=== PATIENT | male | born 1940 | race Caucasian/White ===

== ENCOUNTER → 2019-01-20 | Day surgery (SDC) | payer MEDICARE ==
[2019-01-16 15:06] LABS: BASOPHILS % 0.4 % (0.0-1.0); EOSINOPHILS # (AUTO) 0.2 (0.0-0.4); EOSINOPHILS % 3.4 % (0.0-6.0); HEMATOCRIT 31.5 % (38.2-49.6); HEMOGLOBIN 10.4 g/dL (14.0-18.0); LYMPHOCYTES # (AUTO) 1.4 (1.0-3.2); LYMPHOCYTES % 29.1 % (18.0-39.1); MEAN CORPUSCULAR HEMOGLOBIN 29.3 pg (28-32); MEAN CORPUSCULAR VOLUME 88.7 fL (81-99); MONOCYTES # (AUTO) 0.4 (0.2-0.8); MONOCYTES % 7.6 % (4.4-11.3); NEUTROPHILS # (AUTO) 2.8 (2.1-6.9); NEUTROPHILS % 58.9 % (38.7-80.0); PLATELET COUNT 150 x10e3/uL (140-360); RED BLOOD COUNT 3.55 x10e6/uL (4.3-5.7)
[2019-01-16 15:34] LABS: ANION GAP 12.9 mmol/L (8-16); CALCIUM 9.6 mg/dL (8.4-10.2); CREATININE, SERUM 1.8 mg/dL (0.72-1.25); POTASSIUM 3.9 mmol/L (3.5-5.1)
--- NOTE | 2019-01-16 15:43 | Diagnostic Imaging Report ---
Chest, 2 views, 01/16/2019. History: Preop, right inguinal hernia. Comparison: None available. Findings: The cardiomediastinal silhouette and pulmonary vasculature are within normal limits. The lungs are clear without evidence of consolidation or pleural effusion. Mild degenerative changes are noted in the thoracic spine. There are no acute osseous or soft tissue abnormalities. Impression: No acute cardiopulmonary abnormality. Signed by: Evaristo Amaya on 01/16/2019 3:39 PM
[~2019-01-20] MED LIST: ASPIR 8181 MG PO; BACITRACIN 50,000 UNIT VIAL ONE; BUPIVACAINE HCL 0.5% INJ 30 ML VIAL INJ ONE; CEFAZOLIN SOD 1 GM/NS 50ML 100 ML IV ONE; CLONAZEPAM0.5 MG PO; DEXAMETHASONE SOD PHOS INJ 4 MG/ML VIAL ONE; DONEPEZIL HCL5 MG PO; FENOFIBRATE134 MG PO; FERROUS SULFAT324 MG PO; FISH OIL 1,2001 EACH PO; GLIMEPIRIDE2 MG PO; LIDOCAINE HCL 2% LOCAL INJ 5 ML SDV VIAL INJ ONE; LISINOPRIL2.5 MG PO; MELATONIN3 MG PO; METFORMIN HCL500 M2 PO; ONDANSETRON HCL INJ 2MG/ML 2ML 2 MG/ML VIAL ONE; PIOGLITAZONE HC45 MG PO; PROPOFOL IV EMULSION 10 MG/ML 20 ML VIAL ONE; RANITIDINE HCL150 MG PO; SERTRALINE HCL100 MG PO; SEVOFLURANE INHAL SOLN 250 ML PEN BTL ONE; VITAMIN B-121000 MCG PO
--- OUTSIDE RECORDS SUMMARY | 2019-01-20 10:35 | XMS REPORT ---
Author Organization Unknown Address [address] [place] [address] Phone [phone] Care Team Providers Care Buffet Waiter/Waitress Name Role Phone DR. СЕРГЕЙ POWERS 3 [phone] Allergies Code Code System Name Reaction Severity Status Onset 2670 RxNorm Codeine Active 7052 RxNorm Morphine Active Medications Name Status Start Date Stop Date acetaminophen 300 mg-codeine 30 mg tablet Completed 10/15/2016 Adult Low Dose Aspirin 81 mg tablet,delayed release Take 1 tablet every day by oral route for 90 days. Active Not available ciprofloxacin 500 mg tablet Completed 10/15/2016 fenofibrate micronized 134 mg capsule Active Not available glimepiride 4 mg tablet Active Not available levofloxacin 500 mg tablet Completed 03/05/2017 lisinopril 5 mg tablet Active Not available metformin 500 mg tablet Completed 03/05/2017 metformin ER 500 mg 24 hr tablet,extended release Take 2 tablets every day by oral route for 30 days. Active Not available metformin ER 500 mg tablet,extended release 24 hr Completed 08/05/2017 ReliaMed Mini Lancing Device Take 1 each every day by miscell. route for 90 days. Active Not available tramadol 50 mg tablet Completed 08/05/2017 triamcinolone acetonide 0.1 % topical cream APPLY A THIN LAYER TO THE AFFECTED AREA(S) BY TOPICAL ROUTE 2 TIMES PER DAY Active Not available True Metrix Glucose Test Strip Active Not available True Metrix Level 1 solution Completed 03/05/2017 TRUEplus Lancets 28 gauge Take 1 each every day by miscell. route for 90 days. 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 Active 03/05/2017 Hypertriglyceridemia Active 03/05/2017 Chronic Kidney Disease Stage 3 Active 03/05/2017 Raised Prostate Specific Antigen Active 03/05/2017 Diabetic Retinopathy Associated with Type 2 Diabetes Mellitus Active 03/05/2017 Bilateral Age-related Nuclear Cataracts Active 03/05/2017 Procedures Date Name Performed by 04/22/2016 Hernia Repair Information not available 04/22/2008 Orthopedic Surgery Information not available 08/21/2016 XR, Knee, 3 View [facility] [address] [place] [address] (Work Place) 01/09/2017 XR, Chest, 2 View [facility] [address] [place] [address] (Work Place) Lab Results Date Name Specimen Result Interpretation Description Value Range Status Address 08/21/2016 TSH, Serum or Plasma Normal Tsh 2.35 mIU/L 0.40-4.50 mIU/L Final [facility]: [address] [place] [address] 08/21/2016 HbA1C (Hemoglobin a1C), Blood High Hemoglobin a1C 7.8 % of total HGB <5.7 % of total HGB Final [facility]: [address] [place] [address] EAG (mg/dL) 177 (calc) Final [facility]: [address] [place] [address] EAG (mmol/L) 9.8 (calc) Final [facility]: [address] [place] [address] 08/21/2016 Lipid Panel, Serum Normal Cholesterol, Total 132 mg/dL 125- 200 mg/dL Final [facility]: [address] [place] [address] Low HDL Cholesterol 27 mg/dL > or=40 mg/dL Final [facility]: [address] [place] [address] High Triglycerides 185 mg/dL <150 mg/dL Final [facility]: [address] [place] [address] Normal LDL-cholesterol 68 mg/dL (calc) <130 mg/dL (calc) Final [facility]: [address] [place] [address] Normal Chol/hdlc Ratio 4.9 (calc) < or=5.0 (calc) Final [facility]: [address] [place] [address] Normal Non HDL Cholesterol 105 mg/dL (calc) Final [facility]: [address] [place] [address] 08/21/2016 CBC W/ Auto Diff Normal White Blood Cell Count 4.7 thousand/uL 3.8-10.8 thousand/uL Final [facility]: [address] Normal Red Blood Cell Count 4.62 million/uL 4.20-5.80 million/uL Final [facility]: [address] Low Hemoglobin 12.9 g/dL 13.2-17.1 g/dL Final [facility]: [address] Normal Hematocrit 39.8 % 38.5-50.0 % Final [facility]: [address] Normal Mcv 86.0 fL 80.0-100.0 fL Final [facility]: [address] Normal Mch 28.0 pg 27.0-33.0 pg Final [facility]: [address] Normal Mchc 32.5 g/dL 32.0-36.0 g/dL Final [facility]: [address] Normal Rdw 13.3 % 11.0-15.0 % Final [facility]: [address] Normal Platelet Count 179 thousand/uL 140-400 thousand/uL Final [facility]: [address] Normal Mpv 7.9 fL 7.5-12.5 fL Final [facility]: [address] Normal Absolute Neutrophils 2623 cells/uL 5109-4713 cells/uL Final [facility]: [address] Absolute Band Neutrophils Preliminary [facility]: [address] Absolute Metamyelocytes Preliminary [facility]: [address] Absolute Myelocytes Preliminary [facility]: [address] [place] Absolute Promyelocytes Preliminary [facility]: [address] Normal Absolute Lymphocytes 1537 cells/uL 850-3900 cells/uL Final [facility]: [address] Normal Absolute Monocytes 324 cells/uL 200-950 cells/uL Final [facility]: [address] [place] Normal Absolute Eosinophils 197 cells/uL 15-500 cells/uL Final [facility]: [address] Normal Absolute Basophils 19 cells/uL 0-200 cells/uL Final [facility]: [address] Absolute Blasts Preliminary [facility]: [address] Absolute Nucleated RBC Preliminary [facility]: [address] Normal Neutrophils 55.8 % Final [facility]: [address], [address] Band Neutrophils Preliminary [facility]: [address] Metamyelocytes Preliminary [facility]: [address] Myelocytes Preliminary [facility]: [address] Promyelocytes Preliminary [facility]: [address], [address] Normal Lymphocytes 32.7 % Final [facility]: [address] Reactive Lymphocytes Preliminary [facility]: [address] Normal Monocytes 6.9 % Final [facility]: [address] Normal Eosinophils 4.2 % Final [facility]: [address] Normal Basophils 0.4 % Final [facility]: [address] Blasts Preliminary [facility]: [address] [place] Nucleated RBC Preliminary [facility]: [address] Comment(s) Preliminary [facility]: [address] 08/21/2016 CMP, Serum or Plasma High Glucose 122 mg/dL 65-99 mg/dL Final [facility]: [address] [place] Normal Urea Nitrogen (BUN) 18 mg/dL 7-25 mg/dL Final [facility]: [address] [place] High Creatinine 1.35 mg/dL 0.70-1.18 mg/dL Final [facility]: [address] [place] Low eGFR Non-afr. Taiwanese 52 mL/min/1.73m2 > or=60 mL/min/1.73m2 Final [facility]: [address] [place] Normal eGFR 60 mL/min/1.73m2 > or=60 mL/min/1.73m2 Final [facility]: [address] Normal BUN/creatinine Ratio 13 (calc) 6-22 (calc) Final [facility]: [address] [facility] Normal Sodium 140 mmol/L 135-146 mmol/L Final [facility]: [address] Normal Potassium 5.1 mmol/L 3.5-5.3 mmol/L Final [facility]: [address] Normal Chloride 107 mmol/L 98-110 mmol/L Final [facility]: [address] Normal Carbon Dioxide 27 mmol/L 20-31 mmol/L Final [facility]: [address] Normal Calcium 10.2 mg/dL 8.6-10.3 mg/dL Final [facility]: [address] Normal Protein, Total 7.3 g/dL 6.1-8.1 g/dL Final [facility]: [address] Normal Albumin 4.4 g/dL 3.6-5.1 g/dL Final [facility]: [address] Normal Globulin 2.9 g/dL (calc) 1.9-3.7 g/dL (calc) Final [facility]: [address] Normal Albumin/globulin Ratio 1.5 (calc) 1.0-2.5 (calc) Final [facility]: [address] Normal Bilirubin, Total 0.5 mg/dL 0.2-1.2 mg/dL Final [facility]: [address] [place] [address] Normal Alkaline Phosphatase 43 U/L 40-115 U/L Final [facility]: [address] Normal Ast 20 U/L 10-35 U/L Final [facility]: [address] Normal Alt 21 U/L 9-46 U/L Final [facility]: [address] [facility] 08/21/2016 PSA, Serum or Plasma High PSA, Total 9.6 NG/mL < or=4.0 NG/mL Final [facility]: [address] Glucose, Fingerstick, Blood Blood Glucose: mg/dl 151 [facility] [place]: [address] Glucose, Fingerstick, Blood Blood Glucose: mg/dl 174 [facility] - [place]: [address], [address] Urinalysis, Dipstick Color Color yellow [facility] [place]: [address] Color Appearance clear [facility] [place]: [address] Color Glucose negative [facility] [place]: [address] Color Bilirubin negative [facility] [place]: [address], [address] Color Ketones negative [facility] [place]: [address], [place] Color Specific [place] 1.025 [facility] [place]: [address] Color Blood negative [facility] [place]: [address] Color PH 7.0 [facility] [place]: [address] Color Protein 300 [facility] [place]: [address] Color Urobilinogen 1 [facility] - [place]: [address], [address] Color Nitrites negative [facility] [place]: [address] Color Leukocytes negative [facility] [place]: [address] Past Encounters 08/05/2017 Contact Dermatitis; Type II Diabetes Mellitus Uncontrolled; Chronic Kidney Disease Stage 3; Raised Prostate Specific Antigen; Anemia Anderson Thompson MD: [address] [place] [address], Ph. 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 Social History Smoking Status Never Smoker Vaccine List Vaccine Type influenza, high dose seasonal 01/09/20170.5 mL Plan of Care Reminders Provider Appointments None recorded. Lab None recorded. Referral None recorded. Procedures None recorded. Surgeries None recorded. Imaging None recorded. Vitals 08/05/2017 02:15PM Est Patient Height Weight BMI Blood Pressure 6 ft 206 lbs 27.9 kg/m2 126/72 mm[Hg] 03/05/2017 08:45AM Est CPX Height Weight BMI Blood Pressure 6 ft 205 lbs 27.8 kg/m2 140/60 mm[Hg]
--- OUTSIDE RECORDS SUMMARY | 2019-01-20 10:35 | XMS REPORT | Encounter Summary ---
Author Organization Unknown Address [address] [place] [address] Phone [phone] Care Team Providers Care Elementary Esl Teacher Name Role Phone Dr. Anderson Thompson 3 [phone] Shanel Denny MD 107 [phone] Ally Russo MD 118 [phone] Gabi Nash MD 129 [phone] Reason for Visit Hypertriglyceridemia; Type II diabetes mellitus uncontrolled; cough Instructions 1. Type 2 diabetes mellitus well controlled metformin ER 500 mg 24 hr tablet,extended release glimepiride 4 mg tablet diabetic ophthalmology referral - PLEASE FAX NOTES TO [phone]. 2. Hypertriglyceridemia fenofibrate micronized 134 mg capsule 3. Screening for malignant neoplasm of colon 4. Immunization refused 5. Body mass index 25-29 - overweight learning about healthy weight 6. Iron deficiency anemia 7. Chronic kidney disease stage 3 nephrology referral - PLEASE FAX NOTES TO [phone]. 8. Memory impairment neurology referral - PLEASE FAX NOTES TO [phone]. Discussion Note: None recorded. Plan of Care Reminders Provider Appointments Est Patient 09/12/2018 10:15AM Day Loyd MD Lab None recorded. Referral Neurology Referral 06/17/2018 Gabi Nash MD Nephrology Referral 06/17/2018 Ally Russo MD Diabetic Ophthalmology Referral 06/17/2018 Amanda Alexander MD Procedures None recorded. Surgeries None recorded. Imaging None recorded. Medications Name Start Date Adult Low Dose Aspirin 81 mg tablet,delayed release Take 1 tablet every day by oral route for 90 days. B12 QD OTC clonazepam 0.5 mg tablet Take 1 tablet twice a day by oral route as needed. fenofibrate micronized 134 mg capsule Take 1 capsule every day by oral route for 90 days. ferrous sulfate 324 mg (65 mg iron) tablet,delayed release Take 1 tablet every day by oral route. glimepiride 4 mg tablet Take 1 tablet twice a day by oral route for 90 days. lisinopril 5 mg tablet Take 1 tablet every day by oral route for 90 days. melatonin 10 mg capsule Take 1 capsule every day by oral route at bedtime. metformin ER 500 mg 24 hr tablet,extended release Take 2 tablets twice a day by oral route for 90 days. sertraline 100 mg tablet Take 1 tablet every day by oral route for 30 days. Medications Administered None recorded. Vitals Height Weight BMI Blood Pressure 6 ft 193.6 lbs 26.3 kg/m2 124/78 mm[Hg] Lab Results None recorded. Allergies Code Code System Name Reaction Severity Status Onset 2669 RxNorm Codeine Active 70 RxNorm Morphine Active Problems Name Status Onset Date Source Type [...] 03/05/2017 Bilateral Age-related Nuclear Cataracts Active 03/05/2017 Memory Impairment Active 06/17/2018 Procedures Date Name Performed by 04/22/2016 Hernia Repair Information not available 04/22/2008 Orthopedic Surgery Information not available 04/22/1987 Removal of Gallbladder Information not available 04/22/1983 Other Information not available Vaccine List Vaccine Type influenza, high dose seasonal 01/09/20170.5 mL 03/11/20180.5 mL pneumococcal conjugate PCV 13 04/08/20180.5 mL Social History Smoking Status Never Smoker Past Encounters 06/17/2018 Type 2 Diabetes Mellitus Well Controlled; Hypertriglyceridemia; Screening for Malignant Neoplasm of Colon; Immunization Refused; Body Mass Index 25-29 - Overweight; Iron Deficiency Anemia; Chronic Kidney Disease Stage 3; Memory Impairment Day Lyod MD: [address] [place] [address], Ph. History of Present Illness Note:77yo male presents for follow-up visit. Since last visit, pt has not yet seen any specialists. Was scheduled to see neph (Dr Russo) last month, but appt was postponed to June 29, 2018, Dr Masters not available.<div>Next visit with neurology, Dr aNsh in July 2018.</div><div>Did not schedule with psychiatry or psychology - not covered by insurance</div><div>Did not schedule with Dr Carlos, hematology.</div><div>Did not schedule with Dr Denny GI for colonoscopy. Has [facility] at home to [facility] from [facility].</div><div>Did not schedule with Dr Nichole, urology.</div><div>tea tree farm worker contacted pt & regarding community resources.</div><div><div>Pt's requests update to referrals as they have .</div><div><div><div>
</div><div>PMHx:</div><div> Hyperlipidemia - on fenfibrate for past 6yrs.</div><div>Anemia - has been seen by hematology, Dr Carlos. On oral iron supplement. Next visit in 04/2018.</div><div> Diabetes - past 10-15yrs with Dr. Han before Dr Marin. On metformin ER 500mg two tablets bid & glimepiride 4mg bid</div><div>Hypertension - on lisinopril 5mg qd.</div><div>Insomnia - on OTC melatonin</div><div>cataracts - no diabetic retinopathy per . Followed by Dr Herrera, ophtho. Last eye exam about Feb 10, 2018.</div>
Previously:
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 /macula edema f/u 1yr<div>walks ++as airline security representative</div></div></div></div> Review of Systems:ROS as noted in the HPI Review of Systems Comprehensive General Adult ROS Reported By: Patient Constitutional: Constitutional: no fever Eyes: Eyes: no vision change Cardiovascular: Cardiovascular: no chest pain Respiratory: Respiratory: no wheezing, no shortness of breath, cough Gastrointestinal: Gastrointestinal: no abdominal pain Neurologic: Neurologic: no loss of consciousness, no headaches Psychiatric: Psych: feeling safe in a relationship, no alcohol abuse, no hallucinations, no suicidal thoughts, depression, sleep disturbances, restless sleep, anxiety; decreased memory Physical Exam Upper Respiratory Infection Exam Comprehensive, Cardiology Exam Reported By: Patient Constitutional: General Appearance in no acute distress, well-developed, appears stated age Skin: Inspection and Palpation: warm and dry. Nails: no clubbing Eyes: Pupils conjunctiva non-injected, PERRLA. Lids and Conjunctivae: anicteric, no discharge, no pallor, no arcus senilis, no xanthelasma Lymph Nodes: Cervical non tender, not enlarged Neck: Neck trachea midline, supple, no masses, FROM. Carotid Arteries: bilateral normal upstroke, no bruits, no thrills. Thyroid: not enlarged, non tender, no nodules Lungs: Respiratory effort unlabored. Auscultation no wheezing, no rales / crackles, no rhonchi, clear. Chest Exam: normal curvature, no thoracic deformity, no chest wall tenderness. Percussion: resonant Cardiovascular System: Auscultation no rubs, no gallops. Observation/Palpation of peripheral vascular system no edema. Precordial Exam: non displaced focal PMI, no heaves, no precordial thrills. Rate And Rhythm: regular. Heart Sounds: normal S1, physiologically split S2, no click. Systolic Murmur: not heard. Diastolic Murmur: not heard. Extremities: no cyanosis, no peripheral signs of emboli Psychiatric: Mental Status: alert, normal affect. Orientation: oriented to time, place, and person. Insight: good judgment
--- OUTSIDE RECORDS SUMMARY | 2019-01-20 10:35 | XMS REPORT ---
Author Author [facility] Address Unknown Phone Unavailable Care Team Providers Care Bilingual Customer Service Name Role Phone TRIXIE MATA Unavailable Unavailable Payers Payer Name Policy Type Policy Number Effective Date Expiration Date Problems This patient has no known problems. Allergies, Adverse Reactions, Alerts This patient has no known allergies or adverse reactions. Medications This patient has no known medications. Results Test Description Test Time Test Comments Text Results Atomic Results Result Comments CHEST 2 VIEWS 2019-01-16 15:39:00 [facility] [address] [place] [address] Patient Name: UMA GIL MR #: [id number] : 1940 Age/Sex: 78/M Req #: [id number] Adm Physician: Ordered by: LORA SOLER MD Report #: [id number] Location: OR Room/Bed: Procedure: [id number] DX/CHEST 2 VIEWS Exam Date: 01/16/19 Exam Time: 1450 REPORT STATUS: Signed Chest, 2 views, 01/16/2019. History: Preop, right inguinal hernia. Comparison: None available. Findings: The cardiomediastinal silhouette and pulmonary vasculature are within normal limits. The lungs are clear without evidence of consolidation or pleural effusion. Mild degenerative changes are noted in the thoracic spine. There are no acute osseous or soft tissue abnormalities. Impression: No acute cardiopulmonary abnormality. Signed by: Alondra Amaya on 01/16/2019 3:39 PM Dictated By: ALONDRA AMAYA MD 153 Transcribed By: HENRIK on 01/16/191538 COPY TO: LORA SOLER MD CHEST 2 VIEWS [place] [address] Patient Name: UMA GIL MR #: [id number] : 1940 Age/Sex: 76/M Req #: [id number] Adm Physician: Ordered by: TRIXIE MATA MD Report #: [id number] Location: OR Room/Bed: Procedure: [id number] DX/CHEST 2 VIEWS Exam Date: 04/01/17 Exam Time: 1315 REPORT STATUS: Signed PROCEDURE: CHEST 2 VIEWS TECHNIQUE: PA and lateral chest INDICATION: Preoperative evaluation for hernia surgery. COMPARISON: None. FINDINGS: The lungs are clear and symmetrically inflated. No pleural effusions. Normal heart size and mediastinal contour. Intact skeleton. CONCLUSION: Normal chest. Dictated by: Uma Hart M.D. on 04/01/2017 at 13:56 Electronically approved by: Uma Hart M.D. on 04/01/2017 at 13:56 Dictated By: UMA HART MD [id number] Transcribed By: CLARE on 04/01/17 135 COPY TO: TRIXIE MATA MD
--- OUTSIDE RECORDS SUMMARY | 2019-01-20 10:35 | XMS REPORT | Encounter Summary ---
Author Organization Unknown Address [address] [place] [address] Phone [phone] Care Team Providers Care Farm Labor Contractor Name Role Phone Dr. Anderson Thompson 3 [phone] Shanel Denny MD 107 [phone] Ally Russo MD 118 [phone] Gabi Nash MD 129 [phone] Reason for Visit chronic conditions Instructions 1. Injury of head 2. Laceration of skin 3. Disorientated 4. Type 2 diabetes mellitus 5. Depression screening positive learning about depression learning about mood disorders 6. Unsteady gait 7. Body mass index 25-29 - overweight learning about healthy weight Discussion Note: None recorded. Plan of Care Reminders Provider Appointments Est Patient 07/29/2018 10:30AM Day Loyd MD Est Patient 09/12/2018 10:15AM Day Loyd MD Lab None recorded. Referral None recorded. Procedures [...] Height Weight BMI Blood Pressure 6 ft 194.6 lbs 26.4 kg/m2 110/60 mm[Hg] Lab Results Date Name Specimen Result Interpretation Description Value Range Status Address 07/20/2018 Lab No observation recorded. Allergies Code Code System Name Reaction [...] History Smoking Status Never Smoker Past Encounters 07/22/2018 Injury of Head; Laceration of Skin; Disorientated; Type 2 Diabetes Mellitus; Depression Screening Positive; Unsteady Gait; Body Mass Index 25-29 - Overweight Peter Laboy MD: [address] [place] [address], Ph. History of Present Illness Note:Coming for f/u. Pt went to the ER on 07/20/18 via ambulance. He fell down from the bed and hurt his R eye with the nightstand. He required 5 stitches in the R eyebrow. Pt lost his consciousness for [address] of brain was wnl. CXR and pelvic x-ray were wnl. Glimepiride was d/c at the hospital. Glucose reading at home 160 fasting (since glimepiride was d/c). < div>Pt has a hx of frequent episodes of AMS in the past f/u by neurology. </div> <div>Pt is feeling well today. Denies headaches, blurry vision, dizziness, chest pain, palpitations or SOB.</div> Review of Systems:ROS as noted in the HPI Review of Systems None recorded. Physical Exam General Adult Exam (male) Reported By: Patient Constitutional: General Appearance: healthy-appearing. Level of Distress: NAD Psychiatric: Insight: poor insight. Mental Status: active and alert, normal mood, normal affect. Orientation: to place, to person, not oriented to time. Memory: recent memory abnormal Eyes: Lids and Conjunctivae: non-injected, no discharge; Hematoma around the R eye. 5 sutures in the R eyebrow. Pupils: PERRLA. EOM: EOMI. Sclerae: non-icteric ENMT: Ears: TMs clear. Nose: no sinus tenderness. Lips, Teeth, and Gums: no mouth or lip ulcers. Oropharynx: moist mucous membranes Neck: Neck: supple, trachea midline Lungs: Auscultation: breath sounds normal Cardiovascular: Heart Auscultation: RRR, normal S1, normal S2, no murmurs. Neck vessels: no carotid bruits Musculoskeletal:: Motor Strength and Tone: normal, normal tone Neurologic: Gait and Station: ; unsteady gait. Cranial Nerves: grossly intact. Reflexes: DTRs 2+ bilaterally throughout. Coordination and Cerebellum: no tremor
--- OUTSIDE RECORDS SUMMARY | 2019-01-20 10:35 | XMS REPORT | Encounter Summary ---
Author Organization Unknown Address [address] [place] [address] Phone [phone] Care Team Providers Care Propagator Name Role Phone Dr. Anderson Thompson 3 [phone] Shanel Denny MD 107 [phone] Ally Russo MD 118 [phone] Gabi Nash MD 129 [phone] Reason for Visit Type II diabetes mellitus uncontrolled; other - see typed reason Instructions 1. Type II diabetes mellitus uncontrolled type 2 diabetes: care instructions 2. Body mass index 25-29 - overweight learning about healthy weight 3. Removal of suture Discussion Note: None recorded. Plan of Care Patient Instructions continue same dose metformin,monitor fbs and keep log,rtc as scheduled Reminders Provider Appointments Est Patient 09/12/2018 10:15AM [...] Height Weight BMI Blood Pressure 6 ft 192.8 lbs 26.1 kg/m2 120/60 mm[Hg] Lab Results Date Name Specimen Result Interpretation Description Value Range Status Address 07/20/2018 Lab No observation recorded. Allergies Code Code System Name Reaction Severity Status Onset 2670 RxNorm Codeine Active 7052 RxNorm Morphine Active Problems Name Status Onset [...] History Smoking Status Never Smoker Past Encounters 07/30/2018 Type II Diabetes Mellitus Uncontrolled; Body Mass Index 25-29 - Overweight; Removal of Suture Anderson Thompson MD: [address] [place] [address], Ph. 07/22/2018 Injury of Head; Laceration of Skin; Disorientated; Type 2 Diabetes Mellitus; Depression Screening Positive; Unsteady Gait; Body Mass Index 25-29 - Overweight Peter Laboy MD: [address] [place] [address], Ph. History of Present Illness Note:f/u R eyebrow laceration-needs suture removal<div> fbs log-mainly in 130's</div> Review of Systems:ROS as noted in the HPI Review of Systems None recorded. Physical Exam General Adult Exam (male) Reported By: Patient Skin: Inspection and palpation: ; healed R eyebrow laceration/4 sutures removed
--- OUTSIDE RECORDS SUMMARY | 2019-01-20 10:36 | XMS REPORT | Encounter Summary ---
Author Organization Unknown Address [address] [place] [address] Phone [phone] Care Team Providers Care Package Liner Name Role Phone Dr. Anderson Thompson 3 [phone] Shanel Denny MD 107 [phone] Ally Russo MD 118 [phone] Gabi Nash MD 129 [phone] Reason for Visit diabetic foot exam; hyperlipidemia; hypertension; hernia; memory loss; diabetes Instructions 1. Benign essential hypertension CMP, serum or plasma CBC w/ auto diff lisinopril 5 mg tablet 2. Hypertriglyceridemia lipid panel, serum fenofibrate micronized 134 mg capsule 3. Memory impairment clonazepam 0.5 mg tablet donepezil 5 mg tablet 4. Screening for malignant neoplasm of colon fecal occult blood, stool 5. Body mass index 25-29 - overweight learning about healthy weight 6. Type 2 diabetes mellitus with multiple complications type 2 diabetes: care instructions HbA1c (hemoglobin A1c), blood microalbumin:creatinine ratio, urine urinalysis, dipstick metformin ER 500 mg 24 hr tablet,extended release 7. Major depressive disorder sertraline 100 mg tablet 8. Inguinal pain XR, hip, unilateral, 2 or 3 view - Rt groin pain US, groin - Please call patient and schedule him an appointment. Discussion Note If you do not hear from us in 1 week after the labs are done ,pl call us for results F/u in 1 month to see how pt is tolerating ch[place] Aricept 5 mg . Also need to increase the dose to 10mg if tolerating it well. Plan of Care Reminders Provider Appointments None recorded. Lab Fecal Occult Blood, Stool 09/17/2018 [facility] HbA1C (Hemoglobin a1C), Blood 09/17/2018 [facility] Microalbumin:creatinine Ratio, Urine 09/17/2018 [facility] Urinalysis, Dipstick 09/17/2018 [facility] [place] Lipid Panel, Serum 09/17/2018 [facility] CMP, Serum or Plasma 09/17/2018 [facility] CBC W/ Auto Diff 09/17/2018 [facility] Referral None recorded. Procedures None recorded. Surgeries None recorded. Imaging XR, Hip, Unilateral, 2 or 3 View 09/17/2018 [facility] [place] US, Groin 09/17/2018 [facility] [place] Medications Name Start Date Adult Low Dose Aspirin 81 mg tablet,delayed release Take 1 tablet every day by oral route for 90 days. B12 QD OTC clonazepam 0.5 mg tablet Take 1 tablet every day by oral route as needed for 90 days. No alcohol or driving when on this medicine donepezil 5 mg tablet Take 1 tablet every day by oral route in the evening for 90 days. fenofibrate micronized 134 mg capsule Take 1 capsule every day by oral route for 90 days. ferrous sulfate 324 mg (65 mg iron) tablet,delayed release Take 1 tablet every day by oral route at bedtime. lisinopril 5 mg tablet Take 1 tablet every day by oral route for 90 days. melatonin 10 mg capsule Take 1 capsule every day by oral route at bedtime. metformin ER 500 mg 24 hr tablet,extended release TAKE 2 TABLETS BY MOUTH TWICE DAILY FOR 90 DAYS sertraline 100 mg tablet Take 1 tablet every day by oral route for 90 days. Medications Administered None recorded. Vitals Height Weight BMI Blood Pressure 5 ft 9 in 181.4 lbs 26.8 kg/m2 110/62 mm[Hg] Lab Results Date Name Specimen Result Interpretation Description Value Range Status Address Urinalysis, Dipstick Color Color yellow [facility] [place]: [address] [place] Color Appearance clear [facility] [place]: [address] [place] Color Glucose negative [facility] [place]: [address] [place] Color Bilirubin negative [facility] [place]: [address] [place] Color Ketones negative [facility] [place]: [address] [place] Color Specific [place] 1.020 [facility] [place]: [facility] [address] [place] Color Blood negative [facility] [place]: [address] [place] Color PH 5.5 [facility] [place]: [address] [place] Color Protein negative [facility] [place]: [address] [place] Color Urobilinogen 0.2 [facility] [place]: [address] [place] Color Nitrites negative [facility] [place]: [address] [place] Color Leukocytes negative [facility] [place]: [address] [place] Allergies Code Code System Name Reaction Severity Status Onset 2670 RxNorm Codeine Vomiting Fatal Active 70 RxNorm Morphine Vomiting Fatal Active Problems Name Status Onset Date Source [...] Active 06/17/2018 Procedures Date Name Performed by 02/20/2017 Hernia Repair Information not available 04/22/2008 Orthopedic Surgery Information not available 04/22/1987 Removal of Gallbladder Information not available 04/22/1983 Other Information not available 09/17/2018 XR, Hip, Unilateral, 2 or 3 View [facility] [place] [address] [facility] [address] [place] [address] (Work [address]) 09/17/2018 US, Groin [facility] [place] [address] [facility] [address] [place] [address] (Work Place) Vaccine List Vaccine Type influenza, high dose seasonal 01/09/20170.5 mL 03/11/20180.5 mL pneumococcal conjugate PCV 13 04/08/20180.5 mL Social History Smoking Status Never Smoker Past Encounters 09/17/2018 Benign Essential Hypertension; Hypertriglyceridemia; Memory Impairment; Screening for Malignant Neoplasm of Colon; Body Mass Index 25-29 - Overweight; Type 2 Diabetes Mellitus with Multiple Complications; Major Depressive Disorder; Inguinal Pain Leeanna Murphy MD: [address] [place] [address], Ph. 08/21/2018 Body Mass Index 25-29 - Overweight; Immunization Refused; Benign Prostatic Hyperplasia; Dementia Anderson Thompson MD: [address] [place] [address], Ph. History of Present Illness Hyperlipidemia Reported By: Patient Notes: No chest pain , no shortness of breath, no palpitations ,no dizziness , no diaphoresis , no weakness or numbness in arms or legs , no visual loss . no muscle aches , no muscle weakness Note:Here with for med refills , Does not check blood sugars, , No nocturia, No chest pain , no shortness of breath, no palpitations ,no dizziness , no diaphoresis , no weakness or numbness in arms or legs , no visual loss . taking b12 for memory impairment , still drives but not much / . C/o wanting a referal to see surgeon for Rt inguinal hernia, pain stephanie when his g. daughter jumps on him & sits on him x 2-6 mths. ? mass or lump in Rt groin, no difficulty with bowel movement Review of Systems:ROS as noted in the HPI Review of Systems None recorded. Physical Exam General Adult Exam (male) Reported By: Patient Constitutional: General Appearance: well-developed; bmi - 26.8. Level of Distress: NAD. Ambulation: ambulating normally Psychiatric: Insight: good judgement. Mental Status: active and alert, normal mood, normal affect. Orientation: to time, to place, to person Head: Head: normocephalic, atraumatic Eyes: Lids and Conjunctivae: non-injected, no discharge, no pallor. Pupils: PERRLA. Corneas: grossly intact. Fundoscopic: grossly normal except where noted. EOM: EOMI. Lens: clear. Sclerae: non-icteric. Vision: peripheral vision grossly intact ENMT: Ears: no lesions on external ear, EACs clear, TMs clear, TM mobility normal. Hearing: no hearing loss. Nose: no lesions on external nose, nares patent, no septal deviation, nasal passages clear, no sinus tenderness, no nasal discharge. Lips, Teeth, and Gums: no mouth or lip ulcers, no bleeding gums, normal dentition. Oropharynx: moist mucous membranes, no erythema, no exudates, tonsils not enlarged Neck: Neck: supple, trachea midline, no masses, FROM. Lymph Nodes: no cervical LAD, no supraclavicular LAD, no axillary LAD. Thyroid: no enlargement, non- tender, no nodules Lungs: Respiratory effort: no dyspnea. Auscultation: breath sounds normal, good air movement, CTA except as noted, no wheezing, no rales/crackles, no rhonchi Cardiovascular: Heart Auscultation: RRR, normal S1, normal S2, no murmurs, no rubs, no gallops. Pulses including femoral / pedal: normal throughout Abdomen: Bowel Sounds: normal. Inspection and Palpation: soft, non-distended, no tenderness, no guarding, no rebound tenderness, no masses, no CVA tenderness. Liver: non-tender, no hepatomegaly Male : Male Exam: ; saw filer in room. Scrotum: no swelling, no tenderness; Rt groin - / INguinal area - no mass palpable ,even when coughing, no discomfort at this time in teresa groin. Testes: palpable bilaterally, not enlarged Musculoskeletal:: Motor Strength and Tone: normal, normal tone. Joints, Bones, and Muscles: normal movement of all extremities, no contractures, no bony abnormalities, no malalignment, no tenderness. Extremities: no cyanosis, no edema, no varicosities; No discomfort elicited during Hip exam teresa today , no groin pain today Neurologic: Gait and Station: normal gait, normal station. Cranial Nerves: grossly intact. Sensation: grossly intact. Reflexes: DTRs 2+ bilaterally throughout. Coordination and Cerebellum: [id number] intact, no tremor Skin: Inspection and palpation: no rash, no lesions, no abnormal nevi, no ulcer, no induration, good turgor, no jaundice. Nails: normal Back: Thoracolumbar Appearance: normal curvature Notes: poor historian , Hearing difficulty .
--- OUTSIDE RECORDS SUMMARY | 2019-01-20 10:36 | XMS REPORT | Encounter Summary ---
Author Organization Unknown Address [address] [place] [address] Phone [phone] Care Team Providers Care Youth Program Director Name Role Phone Dr. Anderson Thompson 3 [phone] Shanel Denny MD 107 [phone] Ally Russo MD 118 [phone] Gabi Nash MD 129 [phone] Reason for Visit diabetic foot exam; depression; hernia Instructions 1. Body mass index 25-29 - overweight learning about healthy weight 2. Immunization refused 3. Benign prostatic hyperplasia 4. Dementia Discussion Note: None recorded. Plan of Care Patient Instructions continue all meds f/u neurologist/production tool engineer Reminders Provider Appointments Est Patient 09/12/2018 10:15AM [...] BMI Blood Pressure 5 ft 9 in 185.8 lbs 27.4 kg/m2 112/58 mm[Hg] Lab Results None recorded. Allergies Code Code System Name Reaction Severity Status Onset 0700 RxNorm Codeine Active 2010 RxNorm Morphine Active Problems Name Status Onset [...] History Smoking Status Never Smoker Past Encounters 08/21/2018 Body Mass Index 25-29 - Overweight; Immunization Refused; Benign Prostatic Hyperplasia; Dementia Anderson Thompson MD: [address] [place] [address], Ph. 07/30/2018 Type II Diabetes Mellitus Uncontrolled; Body Mass Index 25-29 - Overweight; Removal of Suture Anderson Thompson MD: [address] [place] [address], Ph. 07/22/2018 Injury of Head; Laceration of Skin; Disorientated; Type 2 Diabetes Mellitus; Depression Screening Positive; Unsteady Gait; Body Mass Index 25-29 - Overweight Peter Laboy MD: [address] [place] [address], Ph. History of Present Illness Note:f/u us kidneys /bladder ordered production tool engineer Dr Zurita<div> prostatic hypertrophy with signifiant post void residual main features</div><div>denies any prostatism and declines urology consult</div><div>he was not aware of reason for visit,known dementia,under care neurologist</div> Review of Systems:ROS as noted in the HPI Review of Systems None recorded. Physical Exam Brief Abdominal Pain Exam Reported By: Patient Constitutional: General Appearance: well-developed, well-nourished, healthy-appearing, alert, oriented, NAD, mucous membranes moist Cardiovascular: Heart Auscultation: S1 present, S2 present, no murmurs, no click Lungs: Lungs: clear to auscultation bilaterally, no wheezing, no crackles Abdomen: Inspection and Palpation: soft, bowel sounds 4 quadrants, no tenderness, non-distended
--- OUTSIDE RECORDS SUMMARY | 2019-01-20 10:36 | XMS REPORT | Encounter Summary ---
Author Organization Unknown Address [address] [place] [address] Phone [phone] Care Team Providers Care Lunch Cook Name Role Phone Dr. Anderson Thompson 3 [phone] Shanel Denny MD 107 [phone] Marek Herrera MD 111 [phone] Ally Russo MD 118 [phone] Reason for Visit Memory impairment; Hypertriglyceridemia; Type II diabetes mellitus uncontrolled; Major depressive disorder; AWV Annual Wellness Visit Male (VFP) Instructions 1. Adult health examination 2. Memory impairment 3. Type II diabetes mellitus uncontrolled type 2 diabetes: care instructions ophthalmology referral HbA1c (hemoglobin A1c), blood microalbumin:creatinine ratio, urine 4. Depression screening 5. Hyperlipidemia lipid panel, serum CMP, serum or plasma high cholesterol: care instructions 6. Raised prostate specific antigen 7. Screening for malignant neoplasm of colon fecal occult blood, stool 8. Persistent cough 9. Major depressive disorder sertraline 100 mg tablet Discussion Note: None recorded. Plan of Care Reminders Provider Appointments Est Patient 02/24/2019 2:30PM Peter Laboy MD Lab HbA1C (Hemoglobin a1C), Blood 11/24/2018 [facility] Lipid Panel, Serum 11/24/2018 [facility] CMP, Serum or Plasma 11/24/2018 [facility] Microalbumin:creatinine Ratio, Urine 11/24/2018 [facility] Fecal Occult Blood, Stool 11/24/2018 [facility] Referral Ophthalmology Referral 11/24/2018 Marek Herrera MD Procedures None recorded. Surgeries None recorded. Imaging None recorded. Medications Name Start Date B12 1 tab a day OTC clonazepam 0.5 mg tablet Take 0.5 tablets every day by oral route as needed for 90 days. donepezil 5 mg tablet Take 1 tablet every day by oral route in the evening for 90 days. fenofibrate micronized 134 mg capsule Take 1 capsule every day by oral route for 90 days. ferrous sulfate 324 mg (65 mg iron) tablet,delayed release Take 1 tablet every day by oral route at bedtime. melatonin 10 mg capsule Take 1 capsule every day by oral route at bedtime. metformin ER 500 mg 24 hr tablet,extended release TAKE 2 TABLETS BY MOUTH TWICE DAILY FOR 90 DAYS pioglitazone 15 mg tablet Take 1 tablet every day by oral route in the morning for 30 days. ranitidine 150 mg tablet Take 1 tablet every day by oral route in the evening for 30 days. sertraline 100 mg tablet Take 1 tablet every day by oral route for 90 days. Medications Administered None recorded. Vitals Height Weight BMI Blood Pressure 5 ft 10 in 174.4 lbs 25 kg/m2 120/62 mm[Hg] Lab Results None recorded. Allergies Code Code System Name Reaction Severity Status Onset 2669 RxNorm Codeine Vomiting Fatal Active 7051 RxNorm Morphine Vomiting Fatal Active Problems Name [...] Cataracts Active 03/05/2017 Memory Impairment Active 06/17/2018 Major Depressive Disorder Active 11/24/2018 Procedures Date Name Performed by 02/20/2017 Hernia Repair Information not available 04/22/2008 Orthopedic Surgery Information not available 04/22/1987 Removal of Gallbladder Information not available 04/22/1983 Hernia Repair Information not available 10/24/2018 CT, Pelvis, W/ Contrast [facility] [address] [place] [address] (Work Place) Vaccine List Vaccine Type influenza, high dose seasonal 01/09/20170.5 mL 03/11/20180.5 mL pneumococcal conjugate PCV 13 04/08/20180.5 mL Social History Tobacco Smoking Status Never Smoker Past Encounters 11/24/2018 Adult Health Examination; Memory Impairment; Type II Diabetes Mellitus Uncontrolled; Depression Screening; Hyperlipidemia; Raised Prostate Specific Antigen; Screening for Malignant Neoplasm of Colon; Persistent Cough; Major Depressive Disorder Peter Laboy MD: [address] [place] [address], Ph. 10/28/2018 Right Inguinal Hernia; History of Melena; Persistent Cough; Type II Diabetes Mellitus Uncontrolled; Raised Prostate Specific Antigen; Body Mass Index 25-29 - Overweight Peter ANiru Laboy MD: [address] [place] [address], Ph. History of Present Illness Mini Cog Reported By: Patient Functional Ability: Personal/Social/ Draw a clock and write in the numbers in the correct place, and set the time to 10 minutes after 11 o'clock was completed correctly? No, 3 word recall: Your nurse or doctor will ask you to remember 3 words. In 5 minutes, they will ask you to repeat them. Patient recalled 1 word Opioid Use Assessment Reported By: Patient Opioid Use Assessment:: Current Use of Opioids : no use of opioids (no further questions required) Note:F/u on dm: glucose readings at home 110-181 fasting. No side effects with meds. Review of Systems Comprehensive General Adult ROS Reported By: Patient Constitutional: Constitutional: no fever Eyes: Eyes: no vision change ENMT: Ears: no ear pain. Nose: no sinus problems. Mouth/Throat: no sore throat Cardiovascular: Cardiovascular: no chest pain, no palpitations, no lightheadedness Respiratory: Respiratory: no wheezing, no shortness of breath Gastrointestinal: Gastrointestinal: no abdominal pain, no nausea, no vomiting, no constipation, not vomiting blood, no dyspepsia, no GERD Musculoskeletal: Musculoskeletal: no muscle aches, no swelling in the extremities Neurologic: Neurologic: no loss of consciousness, no headaches Endocrine: Endocrine: no fatigue Physical Exam General Adult Exam (male) Reported By: Patient Constitutional: General Appearance: healthy-appearing. Level of Distress: NAD Psychiatric: Mental Status: active and alert, normal mood, normal affect. Memory: remote memory normal, recent memory abnormal Eyes: Lids and Conjunctivae: non-injected, no discharge. EOM: EOMI Neck: Neck: supple, trachea midline. Lymph Nodes: no cervical LAD. Thyroid: no enlargement, non-tender Lungs: Auscultation: breath sounds normal Cardiovascular: Heart Auscultation: RRR, normal S1, normal S2, no murmurs. Neck vessels: no carotid bruits Musculoskeletal:: Motor Strength and Tone: normal, normal tone. Extremities: no edema Neurologic: Gait and Station: normal gait
--- OUTSIDE RECORDS SUMMARY | 2019-01-20 10:36 | XMS REPORT | Encounter Summary ---
Author Organization Unknown Address [address] [place] [address] Phone [phone] Care Team Providers Care Rouge Sifter And Miller Name Role Phone Dr. Anderson Thompson 3 [phone] Shanel Denny MD 107 [phone] Ally Russo MD 118 [phone] Reason for Visit lab follow-up; cough Instructions 1. Right inguinal hernia inguinal hernia: care instructions general surgery referral 2. History of melena gastroenterology referral - *Please call the patient and make an appointment* 3. Persistent cough ranitidine 150 mg tablet 4. Type II diabetes mellitus uncontrolled type 2 diabetes: care instructions pioglitazone 15 mg tablet 5. Raised prostate specific antigen urology referral 6. Body mass index 25-29 - overweight learning about healthy weight Discussion Note: None recorded. Plan of Care Reminders Provider Appointments Est Patient 11/18/2018 11:30AM Peter Laboy MD Lab None recorded. Referral General Surgery Referral 10/28/2018 Mulugeta Haskins MD Gastroenterology Referral 10/28/2018 Shanel Denny MD Urology Referral 10/28/2018 Jose Carlos Restrepo MD Procedures None recorded. Surgeries None recorded. Imaging None recorded. Medications Name Start Date B12 QD OTC clonazepam 0.5 mg tablet Take 0.5 [...] tablet every day by oral route as directed for 30 days. ranitidine 150 mg tablet Take 1 tablet every day by oral route as directed for 30 days. sertraline 100 mg tablet Take 1 tablet every day by oral route for 90 days. Medications Administered None recorded. Vitals Height Weight BMI Blood Pressure 5 ft 9 in 174.2 lbs 25.7 kg/m2 126/62 mm[Hg] Lab Results Date Name Specimen Result Interpretation Description Value Range Status Address 10/02/2018 CBC W/ Auto Diff Normal White Blood Cell Count 6.7 thousand/uL 3.8-10.8 thousand/uL Final [facility] [place] [facility]: [address] [place] Low Red Blood Cell Count 3.83 million/uL 4.20-5.80 million/uL Final [facility] [place] [facility]: [address] [place] Low Hemoglobin 10.9 g/dL 13.2-17.1 g/dL Final [facility] [place] [facility]: [address] [place] Low Hematocrit 33.4 % 38.5-50.0 % Final [facility] [place] [facility]: [address] [place] Normal Mcv 87.2 fL 80.0-100.0 fL Final [facility] [place] [facility]: [address] [place] Normal Mch 28.5 pg 27.0-33.0 pg Final [facility] [place] [facility]: [address] [place] Normal Mchc 32.6 g/dL 32.0-36.0 g/dL Final [facility] [place] [facility]: [address] [place] Normal Rdw 13.2 % 11.0-15.0 % Final [facility] [place] [facility]: [address] [place] Normal Platelet Count 223 thousand/uL 140-400 thousand/uL Final [facility] [place] [facility]: [address] [place] Normal Mpv 9.6 fL 7.5-12.5 fL Final [facility] [place] [facility]: [address] [place] Normal Absolute Neutrophils 4288 cells/uL 0253-6242 cells/uL Final [facility] [place] [facility]: [address] [place] Normal Absolute Lymphocytes 1467 cells/uL 850-3900 cells/uL Final [facility] [place] [facility]: [address] [place] Normal Absolute Monocytes 637 cells/uL 200-950 cells/uL Final [facility] [place] [facility]: [address], [place] Normal Absolute Eosinophils 281 cells/uL 15-500 cells/uL Final [facility] [place] [facility]: [address], [place] Normal Absolute Basophils 27 cells/uL 0-200 cells/uL Final [facility] [place] [facility]: [address] [place] Normal Neutrophils 64 % Final [facility] [place] [facility]: [address], [place] Normal Lymphocytes 21.9 % Final [facility] [place] [facility]: [address], [place] Normal Monocytes 9.5 % Final [facility] [place] [facility]: [address], [place] Normal Eosinophils 4.2 % Final [facility] [place] [facility]: [address], [place] Normal Basophils 0.4 % Final [facility] [place] [facility]: [address], [place] Rapid Strep Group a, Throat Strep negative [facility] [place] ([facility] [place]: [address] [place] [address] Allergies Code Code System Name Reaction Severity Status Onset 2670 RxNorm Codeine Vomiting Fatal Active 7052 RxNorm Morphine Vomiting Fatal Active Problems Name [...] not available 04/22/1983 Other Information not available 10/07/2018 XR, Chest, 2 View [facility] [place] [address] [place] [address] (Work Place) 10/07/2018 CT, Abdomen + Pelvis, W/ Contrast [facility] [address] [place], [place] [id number] (Work Place) 10/24/2018 CT, Pelvis, W/ Contrast [facility] [address] [place] [address] (Work Place) Vaccine List Vaccine Type influenza, high dose seasonal 01/09/20170.5 mL 03/11/20180.5 mL pneumococcal conjugate PCV 13 04/08/20180.5 mL Social History Smoking Status Never Smoker Past Encounters 10/28/2018 Right Inguinal Hernia; History of Melena; Persistent Cough; Type II Diabetes Mellitus Uncontrolled; Raised Prostate Specific Antigen; Body Mass Index 25-29 - Overweight Peter Laboy MD: [facility] [place] [address], Ph. 10/07/2018 Inguinal Pain; Melena; Diarrhea; Raised Prostate Specific Antigen; Abnormal Weight Loss; Acute Bronchospasm; Sore Throat Symptom Peter Laboy MD: [address] [place] [address], Ph. 10/02/2018 Upper Respiratory Infection; Melena; Body Mass Index 25-29 - Overweight Peter Laboy MD: [address] [place] [address], Ph. History of Present Illness Note:Coming for CT of the pelvis results. It showed R inguinal hernia.<div> Complaining of persistent productive cough since a few months ago.</div><div>DM: glucose readings at home 160s-170s. Highest 200s fasting.</div> Review of Systems Comprehensive General Adult ROS [...] healthy-appearing. Level of Distress: NAD Psychiatric: Insight: good judgement. Mental Status: active and alert, normal mood, normal affect. Orientation: to time, to place, to person. Memory: recent memory normal, remote memory normal Eyes: Lids and Conjunctivae: non-injected, no discharge ENMT: Ears: TMs clear. Nose: nares patent, no sinus tenderness, no nasal discharge. Lips, Teeth, and Gums: no mouth or lip ulcers. Oropharynx: moist mucous membranes, no erythema, no exudates Neck: Neck: supple, trachea midline. Lymph Nodes: no cervical LAD. Thyroid: no enlargement, non-tender Lungs: Auscultation: breath sounds normal Cardiovascular: Heart Auscultation: RRR, normal S1, normal S2, no murmurs Musculoskeletal:: Motor Strength and Tone: normal, normal tone. Extremities: no edema Neurologic: Gait and Station: normal gait
--- OUTSIDE RECORDS SUMMARY | 2019-01-20 10:36 | XMS REPORT | Encounter Summary ---
Author Organization Unknown Address [address] [place] [address] Phone [phone] Care Team Providers Care Hair Machine Operator Name Role Phone Dr. Anderson Thompson 3 [phone] Shanel Denny MD 107 [phone] Ally Russo MD 118 [phone] Reason for Visit sore throat; other - see typed reason; hernia Instructions 1. Inguinal pain CT, abdomen + pelvis, w/ contrast 2. Melena 3. Diarrhea 4. Raised prostate specific antigen 5. Abnormal weight loss XR, chest, 2 view - Please call patient and schedule him an appointment. 6. Acute bronchospasm Medrol (Miguel Ángel) 4 mg tablets in a dose pack Bromfed DM 2 mg-30 mg-10 mg/5 mL oral syrup 7. Sore throat symptom rapid strep group A, throat Discussion Note: None recorded. Patient educational handouts: No information available. Plan of Care Reminders Provider Appointments Est Patient 10/14/2018 10:00AM Peter Laboy MD Lab Rapid Strep Group a, Throat 10/07/2018 [facility] ([facility] [place] Referral None recorded. Procedures None recorded. Surgeries None recorded. Imaging XR, Chest, 2 View 10/07/2018 [facility] CT, Abdomen + Pelvis, W/ Contrast 10/07/2018 [facility] Medications Name Start Date Adult Low Dose Aspirin 81 mg tablet,delayed release Take 1 tablet every day by oral route for 90 days. azithromycin 250 mg tablet TAKE 2 TABLETS (500 MG) BY ORAL ROUTE ONCE DAILY FOR 1 DAY THEN 1 TABLET (250 MG) BY ORAL ROUTE ONCE DAILY FOR 4 DAYS B12 QD OTC Bromfed DM 2 mg-30 mg-10 mg/5 mL oral syrup Take 10 mL every 6-8 hours by oral route as needed for 5 days. clonazepam 0.5 mg tablet Take 1 tablet [...] every day by oral route at bedtime. fluticasone propionate 50 mcg/actuation nasal spray,suspension [place] 1 spray twice a day by intranasal route as directed for 14 days. lisinopril 5 mg tablet Take 1 tablet every day by oral route for 90 days. Medrol (Miguel Ángel) 4 mg tablets in a dose pack Take 1 dose pk by oral route. melatonin 10 mg capsule Take 1 capsule every day by oral route at bedtime. metformin ER 500 mg 24 hr tablet,extended release TAKE 2 TABLETS BY MOUTH TWICE DAILY FOR 90 DAYS sertraline 100 mg tablet Take 1 tablet every day by oral route for 90 days. Tessalon Perles 100 mg capsule Take 1 capsule 3 times a day by oral route as needed for 14 days. Medications Administered None recorded. Vitals Height Weight BMI Blood Pressure 5 ft 9 in 174 lbs 25.7 kg/m2 102/68 mm[Hg] Lab Results Date Name Specimen Result Interpretation Description Value Range Status Address 09/17/2018 Microalbumin:creatinine Ratio, Urine Microalbumin Random Urine 14 ug/mL Final [facility]: [address] [place] [address] Normal Creatinine Random Urine 91.0 mg/dL 20.0-370.0 mg/dL Final [facility]: [address] [place] [address] Normal Microalbumin/creatinine (Random Urine) Ratio Calculated 15 mcg/mg creat Final [facility]: [address] 09/17/2018 CBC W/ Auto Diff Wbc 4.60 x10*3/L 4.23-9.07 x10*3/L Final [facility]: [address] Low Rbc 4.07 10*12/L 4.63-6.08 10*12/L Final [facility]: [address] Low Hemoglobin 11.70 g/dL 13.70-17.50 g/dL Final [facility]: [address] Low Hematocrit 36.2 % 40.1-51.0 % Final [facility]: [address] [place] Mcv 88.9 fL 80.0-100.0 fL Final [facility]: [address] [place] Mch 28.7 pg 25.7-32.2 pg Final [facility]: [address] [place] Mchc 32.3 g/dL 32.3-36.5 g/dL Final [facility]: [address] [place] RDW-SD 42.0 fL 35.1-43.9 fL Final [facility] [address] [facility] Plate[facility] Count 182.0 k/uL 163.0-337.0 k/uL Final [facility]: [address] [place] Mpv 10.1 fL 7.5-11.5 fL Final [facility]: [address] [place] Neut% 57.6 % 34.0-67.9 % Final [facility]: [address] [facility] Lymph% 30.7 % 21.8-53.1 % Final [facility]: [address] [facility] Mon% 7.8 % 5.3-12.2 % Final [facility] [address] [facility] Eos% 3.5 % 0.8-7.0 % Final [facility] [address] [facility] Baso% 0.4 % 0.2-1.2 % Final [facility]: [address] [facility] Neut# 2.7 x10*3/L 1.8-5.4 x10*3/L Final [facility]: [address] [place] Lymph# 1.4 x10*3/L 1.3-3.6 x10*3/L Final [facility]: [address] [facility] Mon# 0.4 x10*3/L 0.3-0.8 x10*3/L Final [facility]: [address] [facility] Eos# 0.16 x10*3/L 0.04-0.54 x10*3/L Final [facility]: [address] [place] Baso# 0.02 x10*3/L 0.01-0.08 x10*3/L Final [facility]: [address] [place] 09/17/2018 CMP, Serum or Plasma Alt 12 U/L 0-55 U/L Final [facility]: [address] [place] Ast 13 U/L 5-34 U/L Final [facility]: [address] [place] High Bun 34.4 mg/dL 8.4-25.0 mg/dL Final [facility]: [address] [place] Low Alk Phos 37 unit/L 40-150 unit/L Final [facility]: [address] [place] High Glucose 120 mg/dL 70-99 mg/dL Final [facility]: [address] [place] [address] Albumin 4.2 g/dL 3.4-5.1 g/dL Final [facility]: [address] High Creatinine 1.77 mg/dL 0.72-1.25 mg/dL Final [facility]: [address] ABNORMAL eGFR Non- 38 mL/min/1.73m2 Final [facility]: [address] [place] Total Bilirubin 0.4 mg/dL 0.2-1.2 mg/dL Final [facility]: [address] ABNORMAL eGFR - 46 mL/min/1.73m2 Final [facility]: [address] [facility] Sodium 139 mEq/L 135-145 mEq/L Final [facility]: [address] [facility] High Potassium 5.2 mEq/L 3.5-5.1 mEq/L Final [facility]: [address] [facility] Chloride 106 mmol/L 98-110 mmol/L Final [facility]: [address] [facility] Total Protein 7.3 g/dL 6.1-8.2 g/dL Final [facility]: [address] [facility] Calcium 10.1 mg/dL 9.0-10.2 mg/dL Final [facility]: [address] [place] [address], [place] Co2 22.8 mmol/L 20.0-32.0 mmol/L Final [facility]: [address] [place] [address], [place] Anion Gap 10 calc Final [facility]: [address] [place] [address], [place] 09/17/2018 Lipid Panel, Serum Low Hdl 28 mg/dL >40 mg/dL Final [facility]: [address] High Triglyceride 203 mg/dL <150 mg/dL Final [facility]: [address] [address], [place] VLDL (Calculated) 41 mg/dL Final [facility]: [address] cholesterol/HDL Ratio 5.8 mg/dL Final [facility]: [address] non-HDL Cholesterol (Calculated) 133 mg/dL <160 mg/dL Final [facility]: [address] Cholesterol 161 mg/dL <200 mg/dL Final [facility]: [address] LDL (Calculated) 92 mg/dL <130 mg/dL Final [facility]: [address] [place] [address], [place] 09/17/2018 HbA1C (Hemoglobin a1C), Blood High A1C W/eag 6.7 % 1.0-5.7 % Final [facility]: [address] Average Blood Glucose 146 mg/dL Final [facility]: [address] Rapid Strep Group a, Throat Strep negative [facility] ([facility]) [place]: [address] [place] Urinalysis, Dipstick Color Color yellow [facility] ([facility]) [place]: [address] [place] Color Appearance clear [facility] ([facility]) [place]: [address] [place] Color Glucose negative [facility] ([facility]) [place]: [address] [place] Color Bilirubin negative [facility] ([facility]) [place]: [address] [place] Color Ketones negative [facility] ([facility]) [place]: [address] [place] Color Specific Wright 1.020 [facility] ([facility]) [place]: [address] [place] Color Blood negative [facility] [place]: [address] [place] Color PH 5.5 [facility] [place]: [address] [place] Color Protein negative [facility] ([facility]) [place]: [address] [place] Color Urobilinogen 0.2 [facility] ([facility]) [place]: [address] [place] Color Nitrites negative [facility] (p) [place]: [address] [place] Color Leukocytes negative [facility] ([facility]) [place]: [address] [place] Allergies Code Code System Name Reaction Severity [...] XR, Hip, Unilateral, 2 or 3 View [facility] [place] [address] [place] [address] (Work Place) 09/17/2018 [place], [place] [facility] [place] [address] [place] [address] (Work Place) 10/07/2018 XR, Chest, 2 View [facility] [address] [place], [place] [id number] (Work Place) 10/07/2018 CT, Abdomen + Pelvis, W/ Contrast [facility] [address] [place], [place] [id number] (Work Place) Vaccine List Vaccine Type influenza, high dose seasonal 01/09/20170.5 mL 03/11/20180.5 mL pneumococcal conjugate PCV 13 04/08/20180.5 mL Social History Smoking Status Never Smoker Past Encounters 10/07/2018 Inguinal Pain; Melena; Diarrhea; Raised Prostate Specific Antigen; Abnormal Weight Loss; Acute Bronchospasm; Sore Throat Symptom Peter Laboy MD: [address] [place] [id number], Ph. 10/02/2018 Upper Respiratory Infection; Melena; Body Mass Index 25-29 - Overweight Peter Laboy MD: [address] [place] [address], Ph. 09/17/2018 Benign Essential Hypertension; Hypertriglyceridemia; Memory Impairment; Screening for Malignant Neoplasm of Colon; Body Mass Index 25-29 - Overweight; Type 2 Diabetes Mellitus with Multiple Complications; Major Depressive Disorder; Inguinal Pain Leeanna Murphy MD: [address] [place] [address], Ph. History of Present Illness Note:F/u on URI, diarrhea and melena. Pt completed a zpak this AM. Recently exposed to strep. Still complaining of productive cough, runny nose and nasal congestion. He couldn't afford the tessalon capsules. Diarrhea and melena resolved. Complaining of pain in the R inguinal area, that comes and goes. Normal u/s of the inguinal area on 09/23/18. Review of Systems:ROS as noted in the HPI Review of Systems None recorded. Physical Exam General Adult Exam (male) Reported By: Patient Constitutional: General Appearance: healthy-appearing. Level of Distress: NAD Psychiatric: Insight: good judgement. Mental Status: active and alert, normal mood, normal affect. Orientation: to time, to place, to person. Memory: recent memory normal, remote memory normal Eyes: Lids and Conjunctivae: non-injected, no discharge. EOM: EOMI ENMT: Ears: TMs clear. Nose: no sinus tenderness, nares non-patent, nasal discharge, post nasal drip. Lips, Teeth, and Gums: no mouth or lip ulcers. Oropharynx: moist mucous membranes, no exudates, erythema Neck: Neck: supple, trachea midline. Lymph Nodes: cervical LAD. Thyroid: no enlargement, non-tender Lungs: Auscultation: breath sounds normal Cardiovascular: Heart Auscultation: RRR, normal S1, normal S2, no murmurs. Neck vessels: no carotid bruits Abdomen: Inspection and Palpation: soft, non-distended, no guarding, no rebound tenderness, no masses; tenderness with palpation in the RLQ and R inguinal area. Liver: non-tender, no hepatomegaly. Spleen: non-tender, no splenomegaly Musculoskeletal:: Motor Strength and Tone: normal, normal tone. Extremities: no edema Neurologic: Gait and Station: normal gait
--- OUTSIDE RECORDS SUMMARY | 2019-01-20 10:36 | XMS REPORT | Encounter Summary ---
Author Organization Unknown Address [address] [place] [id number] Phone [phone] Care Team Providers Care Assistant Mechanic Name Role Phone Dr. Anderson Thompson 3 [phone] Shanel Denny MD 107 [phone] Ally Russo MD 118 [phone] Reason for Visit fever; cough / congestion; diarrhea Instructions 1. Upper respiratory infection Zithromax Z-Miguel Ángel 250 mg tablet fluticasone propionate 50 mcg/actuation nasal spray,suspension Tessalon Perles 100 mg capsule 2. Melena CBC w/ auto diff gastroenterology referral 3. Body mass index 25-29 - overweight learning about healthy weight Discussion Note: None recorded. Plan of Care Reminders Provider Appointments None recorded. Lab CBC W/ Auto Diff 10/02/2018 [facility] Referral Gastroenterology Referral 10/02/2018 Procedures None recorded. Surgeries None recorded. Imaging [...] bedtime. fluticasone propionate 50 mcg/actuation nasal spray,suspension Atkins 1 spray twice a day by intranasal [...] oral route as needed for 14 days. Zithromax Z-Miguel Ángel 250 mg tablet TAKE 2 TABLETS (500 MG) BY ORAL ROUTE ONCE DAILY FOR 1 DAY THEN 1 TABLET (250 MG) BY ORAL ROUTE ONCE DAILY FOR 4 DAYS Medications Administered None recorded. Vitals Height Weight BMI Blood Pressure 5 ft 9 in 173 lbs 25.5 kg/m2 102/58 mm[Hg] Lab Results Date Name Specimen Result Interpretation Description Value Range Status Address 09/17/2018 Microalbumin:creatinine Ratio, Urine Microalbumin Random Urine 14 ug/mL Final [facility]: [address] Normal Creatinine Random Urine 91.0 mg/dL 20.0-370.0 mg/dL Final [facility]: [address] Normal Microalbumin/creatinine (Random Urine) Ratio Calculated 15 mcg/mg creat Final [facility]: [address] 09/17/2018 CBC W/ Auto Diff Wbc 4.60 x10*3/L 4.23-9.07 x10*3/L Final [facility]: [address] Low Rbc 4.07 10*12/L 4.63-6.08 10*12/L Final [facility]: [address] Low Hemoglobin 11.70 g/dL 13.70-17.50 g/dL Final [facility]: [address] Low Hematocrit 36.2 % 40.1-51.0 % Final [facility]: [address] Mcv 88.9 fL 80.0-100.0 fL Final [facility]: [address] Mch 28.7 pg 25.7-32.2 pg Final [facility]: [address] Mchc 32.3 g/dL 32.3-36.5 g/dL Final [facility]: [address] RDW-SD 42.0 fL 35.1-43.9 fL Final [facility]: [address] Platelet Count 182.0 k/uL 163.0-337.0 k/uL Final [facility]: [address] [place] Mpv 10.1 fL 7.5-11.5 fL Final [facility]: [address] [place] Neut% 57.6 % 34.0-67.9 % Final [facility]: [address] [place] Lymph% 30.7 % 21.8-53.1 % Final [facility]: [address] [place] Mon% 7.8 % 5.3-12.2 % Final [facility]: [address] [place] Eos% 3.5 % 0.8-7.0 % Final [facility]: [address] [place] Baso% 0.4 % 0.2-1.2 % Final [facility]: [address] [place] Neut# 2.7 x10*3/L 1.8-5.4 x10*3/L Final [facility]: [address] [place] Lymph# 1.4 x10*3/L 1.3-3.6 x10*3/L Final [facility]: [address] [place] Mon# 0.4 x10*3/L 0.3-0.8 x10*3/L Final [facility]: [address] [place] Eos# 0.16 x10*3/L 0.04-0.54 x10*3/L Final [facility]: [address] [place] Baso# 0.02 x10*3/L 0.01-0.08 x10*3/L Final [facility]: [address] [place] 09/17/2018 CMP, Serum or Plasma Alt 12 U/L 0-55 U/L Final [facility] Ast 13 U/L 5-34 U/L Final [facility]: [address] [place] High Bun 34.4 mg/dL 8.4-25.0 mg/dL Final [facility]: [address] [place] Low Alk Phos 37 unit/L 40-150 unit/L Final [facility]: [address] [place] High Glucose 120 mg/dL 70-99 mg/dL Final [facility]: [address] [facility] Albumin 4.2 g/dL 3.4-5.1 g/dL Final [facility]: [address] [place] High Creatinine 1.77 mg/dL 0.72-1.25 mg/dL Final [facility]: [address] [facility] ABNORMAL eGFR Non- 38 mL/min/1.73m2 Final [facility]: [address] [place] Total Bilirubin 0.4 mg/dL 0.2-1.2 mg/dL Final [facility]: [address] [facility] ABNORMAL eGFR - 46 mL/min/1.73m2 Final [facility]: [address] [facility] Sodium 139 mEq/L 135-145 mEq/L Final [facility]: [address] [facility] High Potassium 5.2 mEq/L 3.5-5.1 mEq/L Final [facility]: [address] [facility] Chloride 106 mmol/L 98-110 mmol/L Final [facility]: [address] [facility] Total Protein 7.3 g/dL 6.1-8.2 g/dL Final [facility]: [address] [facility] Calcium 10.1 mg/dL 9.0-10.2 mg/dL Final [facility]: [address] [facility] Co2 22.8 mmol/L 20.0-32.0 mmol/L Final [facility]: [address] [place] Anion Gap 10 calc Final [facility]: [address] [facility] 09/17/2018 Lipid Panel, Serum Low Hdl 28 mg/dL >40 mg/dL Final [facility]: [address] [place] [address] High Triglyceride 203 mg/dL <150 mg/dL Final [facility]: [address] VLDL (Calculated) 41 mg/dL Final [facility]: [address] [place] [address], [place] cholesterol/HDL Ratio 5.8 mg/dL Final [facility]: [address] [place] [address], [place] non-HDL Cholesterol (Calculated) 133 mg/dL <160 mg/dL Final [facility]: [address] [place] [address], [place] Cholesterol 161 mg/dL <200 mg/dL Final [facility]: [address] [address], [place] LDL (Calculated) 92 mg/dL <130 mg/dL Final [facility]: [address] [place] [address], [place] 09/17/2018 HbA1C (Hemoglobin a1C), Blood High A1C W/eag 6.7 % 1.0-5.7 % Final [facility]: [address] [place] [address], [place] Average Blood Glucose 146 mg/dL Final [facility]: [address] [place] [address], [place] Urinalysis, Dipstick Color Color yellow [facility] ([facility] [place]: [address] [place] Color Appearance clear [facility] (p) [place]: [address] [place] Color Glucose negative [facility] (p) [place]: [address] [place] Color Bilirubin negative [facility] (p) [place]: [address] [place] Color Ketones negative [facility] (p) [place]: [address] [place] Color Specific [place] 1.020 [facility] (p) [place]: [address] [place] Color Blood negative [facility] ([facility] [place]: [address] [place] Color PH 5.5 [facility] (p) [place]: [address] [place] Color Protein negative [facility] ([facility]) [place]: [address] [place] Color Urobilinogen 0.2 [facility] (p) [place]: [address] [place] Color Nitrites negative [facility] ([facility]) [place]: [address] [place] Color Leukocytes negative [facility] ([facility]) [place]: [address] [place] Allergies Code Code System Name Reaction Severity [...] XR, Hip, Unilateral, 2 or 3 View [facility] [place] [address] [place] [address] (Work [address]) 09/17/2018 US, Groin [facility] [place] [address] [place] [address] (Work Place) Vaccine List Vaccine Type influenza, high dose seasonal 01/09/20170.5 mL 03/11/20180.5 mL pneumococcal conjugate PCV 13 04/08/20180.5 mL Social History Smoking Status Never Smoker Past Encounters 10/02/2018 Upper Respiratory Infection; Melena; Body Mass Index 25-29 - Overweight Peter Laboy MD: [address] [place] [address], Ph. 09/17/2018 Benign Essential Hypertension; Hypertriglyceridemia; Memory Impairment; Screening for Malignant Neoplasm of Colon; Body Mass Index 25-29 - Overweight; Type 2 Diabetes Mellitus with Multiple Complications; Major Depressive Disorder; Inguinal Pain Leeanna Murphy MD: [address] [place] [address], Ph. History of Present Illness Note:Pt is complaining of runny nose,nasal congestion, productive cough, watery diarrhea, melena and fever not quantified since 1 week ago. Denies sore throat, sob, wheezing or chest pain. Review of Systems Comprehensive General Adult ROS Reported By: Patient Eyes: Eyes: no vision change Cardiovascular: Cardiovascular: no chest pain, no palpitations, [...] Abdomen: Inspection and Palpation: soft, non-distended, no tenderness, no guarding, no rebound tenderness, no masses. Liver: non-tender, no hepatomegaly. Spleen: non-tender, no splenomegaly Musculoskeletal:: Motor Strength and Tone: normal, normal tone. Extremities: no edema Neurologic: Gait and Station: normal gait Skin: Inspection and palpation: no rash, no lesions
[2019-01-20 14:20] VITALS: BP 143/79
--- NOTE | 2019-01-20 19:26 | Operative Report ---
DATE OF PROCEDURE: 01/20/2019 SURGEON: Mulugeta Haskins MD PREOPERATIVE DIAGNOSIS: Recurrent right inguinal hernia. POSTOPERATIVE DIAGNOSIS: Recurrent right inguinal hernia. PROCEDURE: Repair of recurrent right inguinal hernia with mesh. DIVISION SERGEANT: None. ANESTHESIA: General. INDICATIONS AND FINDINGS: The patient is a 78-year-old male, previous repair of right inguinal hernia, presented with complaints of pain in the right groin. He has had two previous hernia repairs surgery. The patient was found to have a hernia at the edge of the mesh from previous repair in the right groin area, there was considerable scarring around the mesh, which radiated from the subcutaneous tissue down to the inguinal canal. TECHNIQUE: After adequate general anesthesia, the patient is in supine position, the right groin area was prepped and draped in sterile fashion with ChloraPrep solution. Transverse incision was made right inguinal area, carried down through subcutaneous tissue and Brody's fascia. There was considerable scarring in this area. There was external oblique fascia identified also was considerable scarring around this fascia. This was opened directions of its fibers through the external ring. Lateral to the previous mesh, there was a herniated mass, this was dissected free. The inguinal canal, however, did not have any hernia. The spermatic cord was dissected free from the mesh, which was found to be intact and in place with no hernia in this area. The herniated mass is dissected free, then reduced through the defect. A plug of Marlex mesh was fashioned appropriately, soaked in antibiotic solution and placed into the hernia defect, which was about 1 x 1 cm; this was then sutured in place to the previously placed mesh as well as to the shelving edge of inguinal ligament laterally and to the conjoined tendon medially. Care was taken not to entrap any nerves. With the mesh in place, the wound was inspected for hemostasis, which was seen to be adequate. The wound was then infiltrated with 0.5% Marcaine. The external oblique fascia was closed with a running suture of 2-0 Vicryl and subcutaneous tissue was closed with running suture of 3-0 Vicryl. Skin was closed with running subcuticular suture of 4-0 Vicryl. Dermabond and sterile dressing were applied. The patient tolerated the procedure well. Estimated blood loss was 10 mL. There were no complications. All counts were correct and the patient was taken to the recovery room in satisfactory condition. Mulugeta W MD CHELITA Haskins/TASIA /[id number] cc: Peter Laboy MD
== END | disposition home or self-care (01) ==
LOC: OR 10:29
PROVIDERS: ATTEND Surgery
DX: K40.91 Unilateral inguinal hernia, without obstruction or gangrene, recurrent (principal); E11.9 Type 2 diabetes mellitus without complications; I10 Essential (primary) hypertension; F03.90 Unspecified dementia, unspecified severity, without behavioral disturbance, psychotic disturbance, mood disturbance, and anxiety; F41.9 Anxiety disorder, unspecified; F32.9 Major depressive disorder, single episode, unspecified; Z88.6 Allergy status to analgesic agent; Z01.810 Encounter for preprocedural cardiovascular examination; Z01.812 Encounter for preprocedural laboratory examination; Z01.818 Encounter for other preprocedural examination; Z79.84 Long term (current) use of oral hypoglycemic drugs
CPT/HCPCS: 36415 ×2; 49520; 71046; 80048; 82948; 85025; 93005; C1781; J0690; J1100; J2001; J2405; J2704

== ENCOUNTER → 2019-12-10 | Day surgery (SDC) | payer MEDICARE, OTHER ==
[2019-12-07 14:01] LABS: BASOPHILS % 0.3 % (0.0-1.0); EOSINOPHILS # (AUTO) 0.1 (0.0-0.4); HEMOGLOBIN 10.2 g/dL (14.0-18.0); LYMPHOCYTES # (AUTO) 0.9 (1.0-3.2); MEAN CORPUSCULAR HGB CONC 32.9 g/dL (31-35); MEAN CORPUSCULAR VOLUME 88.1 fL (81-99); MONOCYTES # (AUTO) 0.4 (0.2-0.8); MONOCYTES % 13.3 % (4.4-11.3); NEUTROPHILS # (AUTO) 1.5 (2.1-6.9); NEUTROPHILS % 52.4 % (38.7-80.0); PLATELET COUNT 99 x10e3/uL (140-360); RED BLOOD COUNT 3.52 x10e6/uL (4.3-5.7); RED CELL DISTRIBUTION WIDTH 13.2 % (11.7-14.4)
[2019-12-07 14:24] LABS: ALBUMIN 3.8 g/dL (3.5-5.0); ALBUMIN/GLOBULIN RATIO 1.2 (0.8-2.0); ANION GAP 14.1 mmol/L (8-16); CALCIUM 9.3 mg/dL (8.4-10.2); CREATININE, SERUM 1.67 mg/dL (0.72-1.25); POTASSIUM 4.1 mmol/L (3.5-5.1)
[~2019-12-10] MED LIST changes: -BACITRACIN 50,000 UNIT VIAL ONE; +EPHEDRINE SULFATE INJ 50 MG/ML VIAL ONE; +FENTANYL CITRATE/PF 100MCG/2 ML INJ ONE; +GLYCOPYRROLATE INJ 0.2 MG/ML VIAL ONE; +KETOROLAC TROMETHAMINE 30 MG/ML VIAL ONE; +MEN MULTIVITAMIN PO
[2019-12-10 11:40] VITALS: BP 131/62
--- NOTE | 2019-12-10 12:12 | Operative Report ---
DATE OF PROCEDURE: 12/10/2019 SURGEON: Mulugeta Haskins MD PREOPERATIVE DIAGNOSIS: Recurrent right inguinal hernia. POSTOPERATIVE DIAGNOSIS: Recurrent right inguinal hernia. PROCEDURE: Repair of recurrent right inguinal hernia with mesh. STEAM SHOVEL OPERATING ENGINEER: None. ANESTHESIA: General. INDICATIONS AND FINDINGS: The patient is a 79-year-old male presenting complaints of pain in the right groin. He had previous hernia repair twice. CT of the pelvis revealed recurrent hernia. There was considerable dense scarring in the right inguinal area. 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 There was a direct recurrent hernia adjacent to the area of previous hernia repair. TECHNIQUE: After adequate general anesthesia, the patient in supine position, the right groin area was prepped and draped in sterile fashion with ChloraPrep solution. Transverse incision made in the right inguinal area going through the area of previous surgery, carried down through subcutaneous tissue. There was considerable scarring in the area. Incision carried down to the external oblique fascia which was opened. The spermatic cord was identified, dissected free. There was a direct hernia with adjacent area of previous repair where a plug had been placed. The plug was partially extruded and this was removed. The spermatic cord was dissected free from the underlying mesh from the previous repair and encircled with a Ty drain. The hernia defect was completely delineated. A new Prolene mesh hernia system was used going through the hernia defect. The preperitoneal space was entered. The large Prolene mesh hernia system was placed through the hernia defect with the underlay patch opened up in the preperitoneal space. Onlay patch was laid over the floor of the inguinal canal. Keyhole opening created to allow exit of the spermatic cord. The onlay patch was sutured to the previously placed mesh laterally and to the conjoined tendon medially. This was done with interrupted sutures of 0 Prolene. Care was taken not to entrap any nerves. Once the mesh was in place, the spermatic cord was returned to its normal position. The wound was inspected for hemostasis which was seen to be adequate. The wound was then infiltrated with 0.5% Marcaine. The external oblique fascia was then closed with running suture 2-0 Vicryl. Care was taken not to entrap the spermatic cord or any nerves. Brody's fascia was closed with running suture of 3-0 Vicryl. Skin was closed with a running subcuticular suture of 4-0 Vicryl. Dermabond and sterile dressing were applied. The patient tolerated the procedure well. Estimated blood loss was 5 mL. There were no complications. All counts were correct. The patient was taken to the recovery room in satisfactory condition. MD CHELITA Gotti/TASIA /[id number]
== END | disposition home or self-care (01) ==
LOC: OR 08:00
PROVIDERS: ATTEND Surgery
DX: K40.91 Unilateral inguinal hernia, without obstruction or gangrene, recurrent (principal); H91.90 Unspecified hearing loss, unspecified ear; I10 Essential (primary) hypertension; E11.9 Type 2 diabetes mellitus without complications; I49.9 Cardiac arrhythmia, unspecified; F41.9 Anxiety disorder, unspecified; F32.9 Major depressive disorder, single episode, unspecified; Z88.6 Allergy status to analgesic agent; Z01.810 Encounter for preprocedural cardiovascular examination; Z01.812 Encounter for preprocedural laboratory examination; Z11.59 Encounter for screening for other viral diseases; Z79.84 Long term (current) use of oral hypoglycemic drugs
CPT/HCPCS: 36415 ×2; 49520; 80053; 82948; 85025; 93005; C1781; J0690; J1100; J1885; J2001; J2405; J2704; J3010; U0002